=== PATIENT | male | born 2000 | race Hispanic/Latino ===

== ENCOUNTER 2020-10-28 12:36 | Emergency (ER) | payer OTHER, SELFPAY ==
[2020-10-28 12:50] VITALS: BP 134/79; PULSE 75; RESP 18; TEMP 36.9; O2SAT 99
--- NOTE | 2020-10-28 13:42 | ED.URI ---
HPI - URI/Sore Throat General Chief Complaint: Upper Respiratory Infection Stated Complaint: Cough,Sinus Time Seen by Provider: 10/28/20 13:42 Source: patient and RN notes reviewed Mode of arrival: ambulatory Limitations: no limitations History of Present Illness HPI Narrative: 19-year-old male presents with concern for 3-week history of cold symptoms. Reports symptoms started with rhinorrhea, nasal congestion, sore throat, cough, body aches. Reports most symptoms have resolved but he continues to have a persistent cough. Reports he has been taking [id number] allergy medicine with no relief. He denies shortness of breath, sweats, chills, fever, loss of sense of taste or smell. MD elicited complaint: cough Related Data Allergies Allergy/AdvReac Type Severity Reaction Status Date / Time No Known Allergies Allergy Verified 10/28/20 12:55 Review of Systems Review of Systems: CONSTITUTIONAL: Denies malaise, chills, sweats, or fever. EYES: Denies visual changes, redness, or discharge. ENT: Denies current rhinorrhea, congestion, sinus pain, otalgia and sore throat. CARDIOVASCULAR: Denies chest pain, palpitations, or edema. RESPIRATORY: Reports cough. Denies dyspnea. GASTROINTESTINAL: Denies abdominal pain, nausea, vomiting, diarrhea SKIN: Denies rash or itching. MUSCULOSKELETAL: Reports myalgia. NEUROLOGIC: Denies headache. All systems reviewed & are unremarkable except as noted in HPI and below PMFSH Comments At time of signature, agree with nursing past medical, surgical, social and family history. There is no relevant family history pertinent to the presenting complaint Exam Narrative: GENERAL: Well-appearing, well-nourished, and in no acute distress. HEAD: Normocephalic EYES: PERRLA, conjunctivae clear ENT: Nares clear. Mucous membranes moist. TM pearly morfin with dull light reflex bilaterally; no tragal tenderness. Oropharynx not erythematous without lesions. Tonsils not enlarged and without exudate, no drooling, no hoarseness, no trismus, uvula midline. NECK: Supple. No lymphadenopathy CHEST: Clear to auscultation, breath sounds equal. No wheezing, rhonchi, rales, or stridor. No respiratory distress, speaks in full sentences. Cough noted HEART: Regular rate and rhythm. No murmur heard. SKIN: Warm, dry, no rash. NEURO: Alert and oriented x3. PSYCH: Normal mood and affect Course Course Emergency Course: Patient is aware of diagnosis, understands and agrees to treatment plan. Anticipatory guidance given. Patient agrees to follow-up as directed and is aware of reasons to seek care at the emergency department. Portions of this record may have been created with voice recognition software Vital Signs Vital signs: Vital Signs Temperature 98.4 F 10/28/20 12:50 Pulse Rate 75 10/28/20 12:50 Respiratory Rate 18 10/28/20 12:50 Blood Pressure 134/79 10/28/20 12:50 Pulse Oximetry 99 10/28/20 12:50 Temperature 98.4 F 10/28/20 12:50 Pulse Rate 75 10/28/20 12:50 Respiratory Rate 18 10/28/20 12:50 Blood Pressure 134/79 10/28/20 12:50 Pulse Oximetry 99 10/28/20 12:50 Reviewed. MDM - URI/Sore Throat MDM Narrative Medical decision making narrative: Differential diagnosis considered: Garcia virus, strep pharyngitis, allergic rhinitis, upper respiratory tract infection, sinusitis, rhinosinusitis, nasopharyngitis. viral pharyngitis, otitis media, otitis externa, pneumonia, bronchitis, viral cough syndrome, viral syndrome, and influenza. Exam findings show no acute concerns or changes; patient is non-toxic appearing and is in no distress. Patient is appropriate for outpatient treatment and follow-up. Critical Care Time Critical Care Time Critical Care Time: No Discharge Plan Discharge Clinical Impression: Bronchitis Patient Disposition: Home, Self-Care Condition: Stable Instructions: Acute Bronchitis (ED) Additional Instructions: Viral illness may last between 7-21 days; antibi
== END 2020-10-28 14:00 | disposition home or self-care (01) ==
PROVIDERS: Emergency Provider Nurse Practitioner; PCP Internal Medicine Infectious Disease
DX: J40 Bronchitis, not specified as acute or chronic (principal)
CPT/HCPCS: 99213; G0463

== ENCOUNTER 2021-08-29 00:33 | Emergency (ER) | payer OTHER, SELFPAY ==
[2021-08-29 00:35] VITALS: BP 126/76; PULSE 85; RESP 18; TEMP 36.8; O2SAT 100
[2021-08-29 01:16] VITALS: BP 127/75; PULSE 71; RESP 16; O2SAT 97
[2021-08-29] MEDS: MAG HYDROX/AL HYDROX/SIMETH 30 ML UDC PO (01:16)
[2021-08-29] MEDS: LIDOCAINE HCL 2% VISC SOLN 15 ML UDC 20 ML PO (01:17)
[2021-08-29] MEDS: ONDANSETRON INJ 4 MG/2 ML VIAL IV PUSH (01:18)
[2021-08-29 01:27] LABS: Basophils Absolute Auto 0.1 K/mm3 (0.0-0.1); Basophils Percent Auto 0.5 % (0.2-1.2); Eosinophils Absolute Auto 0.2 K/mm3 (0-0.3); Eosinophils Percent Auto 1.6 % (0-4.4); Hematocrit 45.1 % (42.0-52.0); Hemoglobin 15.2 g/dL (14.0-18.0); Immature Granulocyte Absolute 0.03 K/mm3 (0.00-0.031); Immature Granulocyte Percent A 0.3 % (0-0.5); Lymphocytes Absolute Auto 3.42 K/mm3 (0.9-3.2); Lymphocytes Percent Auto 31.5 % (18.3-44.2); Mean Corpuscular HGB Conc 33.7 g/dl (32-36); Mean Corpuscular Hemoglobin 29.1 pg (26-34); Mean Corpuscular Volume 86.4 fl (80-100); Mean Platelet Volume 10.2 fl (7.4-10.4); Neutrophils Absolute Auto 6.2 K/mm3 (1.3-6.7); Neutrophils Percent Auto 57.1 % (45.5-73.1); Platelet Count Result 323 k/mm3 (150-375); Red Blood Count 5.22 M/mm3 (4.6-6.20); Red Cell Distribution Width 12.4 % (11.5-14.5); White Blood Count 10.9 K/mm3 (4.5-10.0)
[2021-08-29 01:36] LABS: Alanine Aminotransferase 33 U/L (6-50); Albumin Level 4.5 g/dL (3.5-5.1); Alkaline Phosphatase 109 U/L (38-126); Anion Gap 9 mmol/L (8-16); Aspartate Amino Transferase 27 U/L (17-59); Bilirubin,Total 0.3 mg/dL (0.2-1.3); Blood Urea Nitrogen 13 mg/dL (9-20); Calcium 8.7 mg/dL (8.4-10.2); Carbon Dioxide 26 mmol/L (22-30); Chloride 105 mmol/L (98-107); Estimated CRCL calculation 154 ml/min; Estimated Glomerular Filt Rate > 60; Glucose 100 mg/dL (65-110); Lipase 60 U/L (23-300); Potassium 3.7 mmol/L (3.4-5.0); Sodium 140 mmol/L (137-145)
[2021-08-29 02:04] LABS: SARS-CoV-2 RNA PCR Negative
--- NOTE | 2021-08-29 02:10 | PC.NURSE ---
Pt reports improved s/s after medication administration.
--- NOTE | 2021-08-29 02:25 | ED.GENADULT ---
HPI - General Adult General Chief complaint: Unspecified Stated complaint: nauseated x 1 week, nose bleeds Time Seen by Provider: 08/29/21 00:45 History of Present Illness HPI narrative: Patient is a 20-year-old male who presents ER with nausea and vomiting. Ongoing for a week. Reports it occurs about 1 hour after he eats. He then gets a burning discomfort up his chest into his mouth. Occasionally when he vomits he will get some bleeding from his nose that will last approximately 3 minutes. He did start having diarrhea today. No fevers or chills or sweats. This is preceded by a viral illness with sinus congestion sore throat and cough. His entire family had it. She was swabbed for COVID and it was negative. No alleviating factors that he is found. No history of gallstones. Related Data Allergies Allergy/AdvReac Type Severity Reaction Status Date / Time No Known Allergies Allergy Verified 08/29/21 01:09 Review of Systems Review of Systems: All systems reviewed & are unremarkable except as noted in HPI and below Constitutional: Constitutional: Denies chills and Denies fever(s) Cardiovascular: Cardiovascular: Denies chest pain and Denies rapid heart rate Respiratory: Respiratory: Denies cough, Denies dyspnea and Denies wheezing Gastrointestinal: Gastrointestinal: Denies abdominal pain, Reports heartburn, Reports diarrhea, Reports nausea and Reports vomiting Musculoskeletal: Musculoskeletal: Denies myalgias PMFSH Past Medical History Medical History (Updated 08/29/21 @ 07:26 by Jose Garza MD) Healthy adult male Surgical History Surgical History (Updated 08/29/21 @ 07:26 by Jose Garza MD) No pertinent past surgical history Social History Social History (Updated 08/29/21 @ 07:27 by Jose Garza MD) Smoking status: Never smoker Exam Narrative: GENERAL: Well-appearing, well-nourished, and in no acute distress. HEAD: Normocephalic, atraumatic. ENT: Mucous membranes moist. CHEST: Clear to auscultation. No respiratory distress. HEART: Regular rate and rhythm. Normal peripheral pulses. ABDOMEN: Soft, nontender, nondistended. EXTREMITIES: Normal range of motion. No edema. SKIN: Warm, dry, no rash. NEURO: Alert and oriented x3. PSYCH: Normal mood and affect. Course Course Emergency Course: Informed of results. Feels improved with GI cocktail. Discharge home. Vital Signs Vital signs: Vital Signs Temperature 98.2 F 08/29/21 00:35 Pulse Rate 85 08/29/21 00:35 Respiratory Rate 18 08/29/21 00:35 Blood Pressure 126/76 08/29/21 00:35 Pulse Oximetry 100 08/29/21 00:35 Oxygen Delivery Room Air 08/29/21 00:35 Temperature 98.2 F 08/29/21 00:35 Pulse Rate 72 08/29/21 03:41 Respiratory Rate 19 08/29/21 03:41 Blood Pressure 120/78 08/29/21 03:41 Pulse Oximetry 97 08/29/21 03:41 Oxygen Delivery Room Air 08/29/21 00:35 Medical Decision Making Vital Signs Vital Signs: Vital Signs Temperature 98.2 F 08/29/21 00:35 Pulse Rate 85 08/29/21 00:35 Respiratory Rate 18 08/29/21 00:35 Blood Pressure 126/76 08/29/21 00:35 Pulse Oximetry 100 08/29/21 00:35 Oxygen Delivery Room Air 08/29/21 00:35 Temperature 98.2 F 08/29/21 00:35 Pulse Rate 72 08/29/21 03:41 Respiratory Rate 19 08/29/21 03:41 Blood Pressure 120/78 08/29/21 03:41 Pulse Oximetry 97 08/29/21 03:41 Oxygen Delivery Room Air 08/29/21 00:35 Lab Data Result diagrams: 08/29/21 01:22 08/29/21 01:22 Labs: Lab Results 08/29/21 08/29/21 08/29/21 Range/Units 01:22 01:22 01:22 WBC 10.9 H (4.5-10.0) K/mm3 RBC 5.22 (4.6-6.20) M/mm3 Hgb 15.2 (14.0-18.0) g/dL Hct 45.1 (42.0-52.0) % MCV 86.4 (80-100) fl MCH 29.1 (26-34) pg MCHC 33.7 (32-36) g/dl RDW 12.4 (11.5-14.5) % Plt Count 323 (150-375) k/mm3 MPV 10.2 (7.4-10.4) fl Immature Gran % (Auto) 0.3 (
[2021-08-29] MEDS: PANTOPRAZOLE SODIUM IV 40 MG VIAL IV PUSH (02:41)
[2021-08-29 03:20] VITALS: BP 119/81; PULSE 61; RESP 16; O2SAT 96
[2021-08-29 03:41] VITALS: BP 120/78; PULSE 72; RESP 19; O2SAT 97
== END 2021-08-29 03:42 | disposition home or self-care (01) ==
PROVIDERS: Emergency Provider Emergency Medicine; PCP Internal Medicine Infectious Disease
DX: K21.9 Gastro-esophageal reflux disease without esophagitis (principal); Z20.822 Contact with and (suspected) exposure to COVID-19
CPT/HCPCS: 36415; 80053; 83690; 85025; 96374; 96375; 99284; A9270; C9113; C9803; J2405; U0003; U0005

== ENCOUNTER 2023-03-19 14:27 | Emergency (ER) | payer OTHER, SELFPAY ==
[2023-03-19 15:50] VITALS: BP 129/78; PULSE 71; RESP 16; TEMP 36.9; O2SAT 98
--- NOTE | 2023-03-19 16:35 | ED.URI ---
HPI - URI/Sore Throat General Chief Complaint: Upper Respiratory Infection Stated Complaint: Sore Throat Time Seen by Provider: 03/19/23 16:25 Source: patient Mode of arrival: ambulatory Limitations: no limitations History of Present Illness HPI Narrative: 22-year-old male presented for complaint of cough and nasal congestion for about 10 days. He denies associated shortness of breath, wheezing, nausea vomiting, fevers or chills. He has taken 1 dose of Estefanía and 2doses of Robitussin since onset. He states the cough is harsh. Related Data Allergies Allergy/AdvReac Type Severity Reaction Status Date / Time No Known Allergies Allergy Verified 08/29/21 01:09 Review of Systems Review of Systems: CONSTITUTIONAL: Denies body aches, fever, chills, or sweats. EYES: Denies visual changes, redness, or discharge. ENT: Denies sore throat, or otalgia. Reports rhinorrhea, congestion CARDIOVASCULAR: Denies chest pain, palpitations, or edema. RESPIRATORY: Reports cough, denies sob, wheezing. GASTROINTESTINAL: Denies abdominal pain, nausea, vomiting, or diarrhea. GENITOURINARY: Denies dysuria or hematuria. SKIN: Denies rash, itching, or wounds. MUSCULOSKELETAL: Denies back pain, joint pain, or myalgia. NEUROLOGIC: Denies headache, numbness, tingling, or weakness. PSYCH: Denies depression or anxiety. All systems reviewed & are unremarkable except as noted in HPI and below PMFSH Past Medical History Medical History Healthy adult male Surgical History Surgical History No pertinent past surgical history Social History Social History Smoking status: Never smoker Comments At time of signature, I have reviewed and agree with nursing past medical, surgical, social and family history unless otherwise noted. Please see nursing chart for further information. There is no relevant family history pertinent to the presenting complaint Exam Narrative: GENERAL: Well-appearing, in no acute distress. EYES: EOMI. No redness or drainage. Conjunctivae normal. ENT: Mucous membranes pink and moist. Nasal congestion. TMs normal bilaterally. Throat normal. Uvula midline. NECK: Normal AROM. CHEST: No respiratory distress. Lungs clear to all mccarthy. Harsh inpatient auditor cough noted HEART: Regular rate and rhythm. No murmur appreciated. EXTREMITIES: Normal range of motion. No edema. SKIN: Warm, dry, no rash. Capillary refill normal. Normal skin turgor. NEURO: Alert and oriented x3. Gait steady. PSYCH: Normal affect. Course Course Emergency Course: Patient is aware of diagnosis, understands and agrees to treatment plan. Anticipatory guidance given. Patient agrees to follow-up as directed and is aware of reasons to seek care at the emergency department. Portions of this record may have been created with voice recognition software Level of Care: Express Care Visit Vital Signs Vital signs: Vital Signs Temperature 98.4 F 03/19/23 15:50 Pulse Rate 71 03/19/23 15:50 Respiratory Rate 16 03/19/23 15:50 Blood Pressure 129/78 03/19/23 15:50 Pulse Oximetry 98 03/19/23 15:50 Oxygen Delivery Room Air 03/19/23 15:50 Temperature 98.4 F 03/19/23 15:50 Pulse Rate 71 03/19/23 15:50 Respiratory Rate 16 03/19/23 15:50 Blood Pressure 129/78 03/19/23 15:50 Pulse Oximetry 98 03/19/23 15:50 Oxygen Delivery Room Air 03/19/23 15:50 MDM - URI/Sore Throat MDM Narrative Medical decision making narrative: Discussed physical exam findings. Advised supportive measures and signs/symptoms to go to the ER. Pt is appropriate for outpt treatment and f/u. Differential Diagnosis Differential diagnosis: Likely upper respiratory infection, otitis media, sinusitis, viral infection, bronchitis, influenza and pharyngitis Discharge Plan Discharge
== END 2023-03-19 16:46 | disposition home or self-care (01) ==
PROVIDERS: Emergency Provider Nurse Practitioner Family; PCP Internal Medicine Infectious Disease
DX: J40 Bronchitis, not specified as acute or chronic (principal)
CPT/HCPCS: 99213; G0463